=== PATIENT | male | born 1940 | race Caucasian/White ===

== ENCOUNTER 2016-12-16 09:55 | Emergency (ER) | payer MEDICARE ==
[~2016-12-16] VITALS: Ht 177.8 cm; Wt 99.8 kg
[~2016-12-16 09:55] MED LIST: ACTOS30 MG PO; ALPH-E400 IU PO; ARICEPT10 MG PO; ASPIR-LOW81 MG PO; ASPIRIN CHILDRE81 MG PO; AVODART0.5 MG PO; BETAGAN 2 ML2 ML OP; CENTRUM SILVER1 TA1 PO; CHLORTHALIDONE50 MG PO; CLOPIDOGREL75 MG PO; FOLIC ACID0.4 MG PO; HYDROCHLOROTHIA50 MG PO; LISINOPRIL 10MG10 MG NG; LORATADINE1 POW; LUMIGAN 3 ML3 ML OP; METFORMIN500 MG PO; PIOGLITAZONE30 MG PO; PROSCAR5 MG PO; SIMVASTATIN20 MG PO; STAHIST1 TER PO; TAMSULOSIN HYD0.4 MG PO; VITAMIN B12250 MCG PO; VITAMIN C500 M1 PO; VYTORIN 10 MG-41 TAB PO
--- NOTE | 2016-12-16 10:10 | Emergency Room Report ---
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 Clinical Suspician of Infection? Mental Status: Sepsis Risk: Have you (or family members/close friends) recently traveled outside the [place]? If Yes, where/when: Have you had exposure to infectious disease within the past month? TB? Other? Specify: Source RN notes reviewed, family Exam Limitations no limitations, clinical condition Comment Pt was diagnosed with Dementia in 2006 and has been treated with Aricept and Vitamins and [facility] and dismissed by them 2 years ago and at that time was doing really well until recently. Last Monday AM rogerio 350 he fell at home after tripping over his cane. 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 Called 911 and EMS came and got him into bed and everything seemed to be OK. Monday they went to mosque, came home, the was outside and a friend called, he answered th phone and did not tell her about it. He has been gettting steadily worse with him memory and his ability to ambulate since then. took him to see Dr. Isaac earlier this week and Dr. Isaac tried to get him set up for a CT of head with contrast in [place] but has not been done. Now she wants him to have a CT of the head now with contrast but his Cr=2.1 and his hydration is much worse than it was earlier this week at Dr. Isaac's office. We will try to hydrate and improve his creatinine enough to get a CT of head with contrast but I doubt we will be successful in the ED Cardiac Chest Pain Chest pain indicative of cardiac No ALLERGIES Coded Allergies: [place] Nut ([id number] 04/14/14) Home Medications Reported Medications Finasteride (Proscar) 5 MG PO DAILY LISINOPRIL (Lisinopril) 10 MG NG DAILY Hydrochlorothiazide 50 MG PO DAILY Dutasteride (Avodart) 0.5 MG PO DAILY PIOGLITAZONE HCL (Actos 30MG) 30 MG PO 1700 Donepezil Hydrochloride (Aricept 10MG) 10 MG PO DAILY Ezetimibe/Simvastatin (Vytorin 10-40 MG Tablet) 1 TAB PO QHS LEVOBUNOLOL HCL (Betagan 2 Ml) 2 ML OP BID Bimatoprost (Lumigan 3 Ml) 1 DROP OP DAILY Metformin HCL (Metformin) 500 MG PO BID Multivitamin, Minerals, And (Centrum Silver) 1 TAB PO DAILY Folic Acid 0.4 MG PO DAILY Cyanocobalamin (Vitamin B12) 250 MCG PO DAILY Vitamin E (Alph-E) 400 IU PO DAILY Ascorbic Acid (Vitamin C) 500 MG PO DAILY CLOPIDOGREL BISULFATE (Clopidogrel 75MG) 75 MG PO DAILY Chlorthalidone 50 MG PO DAILY Aspirin (Aspir-Low) 81 MG PO DAILY PIOGLITAZONE HCL (Pioglitazone HCl) 30 MG PO DAILY TAMSULOSIN HCL (Tamsulosin 0.4MG) 0.4 MG PO QHS Simvastatin 20 MG PO DAILY Loratadine 1 POW NA QHS History Medical History General CAD? No Angina: No DE: No Hypertension? Yes Hyperlipidemia? Yes CHF? No COPD? No Asthma? No Anemia? No Hernia? No Thyroid Problems? No Hypothyroidism? No CVA? Yes Seizures? No Diabetes? Yes End Stage Renal Disease? No UTI? No Stones? Yes GB Disease: Yes Nephritic Syndrome? No Asplenia? No Hepatitis? No Sickle Cell Disease? No Arthritis? No Cataracts? No Glaucoma? Yes MRSA? No TB? No Cancer? Yes Immunization Hx DT/Tetanus 1-4 Years Ago Flu LAST YEAR Pneumonia 1-4 YRS Surgical Hx Previous Surgery?Y CHOLECYSTECTOMY BILATERAL HIP REPLACEMENT Family History Family Hx Diabetes Yes CAD Yes Hypertension Yes Hyperlipidemia Yes Cancer Yes TB No Social History Alcohol Alcohol: No Review of Systems All Other Systems Reviewed and Negative Constitutional see HPI Musculoskeletal see HPI Psychiatric/Neurological see HPI Physical Exam Vital Signs Vital Signs Date Time Temp Pulse Resp B/P Pulse O2 O2 Flow FiO2 Ox Delivery Rate 12/16 1224 97.7 74 20 144/73 98 12/16 1213 98 18 144/73 97 12/16 1000 97.6 97 18 120/67 97 General Appearance no apparent distress, fatigued Respiratory Status No: respiratory distress. Cardiovascular normal exam, regular rate/rhythm Neurologic motor weakness, disoriented x 3 Medical Decision Making LABS/Meds/Orders Pt receiving controlled substance in ED? No Results/Orders Laboratory Tests 12/16/16 1215: Urine Color YELLOW, Urine Appearance CLEAR, Urine pH 7.5, Ur Specific [place] 1.015, Urine Protein NEGATIVE, Urine Ketones NEGATIVE, Urine Blood NEGATIVE, Urine Nitrate POSITIVE H, Urine Bilirubin NEGATIVE, Urine Urobilinogen 0.2, Ur Leukocyte Esterase 2+ H, Urine RBC NONE, Urine WBC 5-10, Ur Squamous Epith Cells OCC, Urine Bacteria 3+, Urine Glucose NEGATIVE 12/16/16 1010: Sodium 138, Potassium 3.7, Chloride 102, Carbon Dioxide 29, BUN 40 H, Creatinine 2.1 H, Estimated Creat Clear 41 L, Estimated GFR (MDRD) 31, Glucose 135 H, Calcium 9.3, Total Bilirubin 0.5, AST 23, ALT 20, Alkaline Phosphatase 72, Total Protein 7.4, Albumin 3.6, Globulin 3.8 H, Albumin/Globulin Ratio 0.9 L, WBC 7.8, RBC 4.20 L, Hgb 12.9 L, Hct 39.3 L, MCV 93.5, RDW 14.0, Plt Count 290, MPV 7.5, Gran % 67.2, Gran # 5.3, Lymphocytes % 22.2, Monocytes % 8.3, Eosinophils % 1.8, Basophils % 0.5, Lymphocytes # 1.7, Monocytes # 0.7, Eosinophils # 0.1, Basophils # 0.0, PUBS MCHC 32.9, MCH 30.8 Current Medication Orders Sig/Keila Start time Last Medication Dose Route Stop Time Status Admin Sodium Chloride 999 ML .Q1H 12/16 1100 CAN IV Sodium Chloride 10 ML PRN PRN 12/16 1100 DC IV 12/17 1049 Sodium Chloride 1,000 ML .Q1H1M 12/16 1100 CAN IV 12/16 1200 Sodium Chloride 10 ML PRN PRN 12/16 1100 DC IV 12/17 1050 Sodium Chloride 1,000 ML .Q1H1M 12/16 1100 DC 12/16 IV 12/16 1200 1058 Sodium Chloride 10 ML PRN PRN 12/16 1100 AC IV 12/17 1057 Sodium Chloride 1,000 ML .STK-MED ONE 12/16 1059 DC IV Sodium Chloride 1,000 ML .STK-MED ONE 12/16 1057 DC IV Sodium Chloride 10 ML PRN PRN 12/16 1030 AC IV 12/17 1019 Orders Procedure Date/time Status DIET-NOTHING BY MOUTH 12/16 L Complete DIET-NOTHING BY MOUTH 12/16 D Active CULTURE, URINE 12/[address] ABD/PELVIS REQ 12/[address] HEAD REQ 12/16 1020 Active IV SALINE LOCK 12/16 1020 Active URINALYSIS/COMPLETE 12/16 1020 Complete CBC WITH AUTO DIFF 12/16 1020 Complete CHEM 12 PROFILE 12/16 1020 Complete Departure Departure Time of Disposition 1252 Disposition DC/XFER from ER to 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 Billy at [facility] and admitted by Hospitalist, Joann Perdomo Discharge Counseling Counseled pt/family regarding diagnosis, test results, follow up needs ED Critical Care Critical Care No If Critical Care minutes are documented, the time involved in the performance of seperately reportable procedures was not counted toward critical care time documented. I directly delivered medical care to this critically ill and/or injured patient. Timely evaluation and treatment was necessary to address the significant organ system(s) dysfunction present in this patient. at 1257
[2016-12-16 10:39] LABS: LYMPH # 1.7 K/mm3 (0.7-4.5); LYMPH % 22.2 % (10-50)
[2016-12-16 10:40] LABS: HEMOGLOBIN 12.9 g/dL (14.1-18.0)
--- OUTSIDE RECORDS SUMMARY | 2016-12-16 10:55 | External Medical Summary Rpt | CCD ---
Author Author [employer] Organization [employer] Address Unknown Phone Unavailable Purpose Continuity of Care Document - through 2016
--- OUTSIDE RECORDS SUMMARY | 2016-12-16 10:55 | External Medical Summary Rpt ---
Author Author KRISZENON Caldera, [employer] Organization [employer] Address Unknown Phone Unavailable Results CBC W Auto Differential panel in Blood Observa Value Referen Units Interpr Notes Date tion ce etation Range Basophils 0 - 0.2 K/MM3 Normal No Dec 162016 [#/volume on in 10:10 AM ] in source Blood by data Automated count Basophils 0.1 - 2.0 % Normal No Dec 162016 leukocyte on in 10:10 AM s in source Blood by data Automated count Eosinophi 0.0 - 0.4 K/mm3 Normal No Dec 16 ls 2016 [#/volume on in 10:10 AM ] in source Blood by data Automated count Eosinophi 0.1 - % Normal No Dec 16 ls/100 12.0 2016 leukocyte on in 10:10 AM s in source Blood by data Automated count Granulocy 1.3 - 8.0 K/mm3 Normal No Dec 16 ivan 2016 [#/volume on in 10:10 AM ] in source Blood by data Automated count Granulocy 37.0 - % Normal No Dec 16 ivan/100 80.0 2016 leukocyte on in 10:10 AM s in source Blood by data Automated count Hematocri 42.0 - % Low No Dec 16 t [Volume 52.0 2016 on in 10:10 AM Fraction] source of Blood data Hemoglobi 14.1 - g/dL Low No Dec 16 n 18.0 2016 [Mass/vol on in 10:10 AM ume] in source Blood data Lymphocyt 0.7 - 4.5 K/mm3 Normal No Dec 16 es 2016 [#/volume on in 10:10 AM ] in source Unspecifi data ed specimen by Automated count Lymphocyt 10 - 50 % Normal No Dec 16 es 2016 [#/volume on in 10:10 AM ] in source Unspecifi data ed specimen by Automated count Erythrocy 27 - 31.2 pg Normal No Dec 16 te mean 2016 corpuscul on in 10:10 AM ar source hemoglobi data n [Entitic mass] Erythrocy 31.8 - g/dl Normal No Dec 16 te mean 35.4 2016 corpuscul on in 10:10 AM ar source hemoglobi data n concentra tion [Mass/vol ume] by Automated count Erythrocy 82.2 - fl Normal No Dec 16 te mean 97.8 2016 corpuscul on in 10:10 AM ar volume source [Entitic data volume] by Automated count Monocytes 0.1 - 1.0 K/mm3 Normal No Dec 16 inform2016 [#/volume on in 10:10 AM ] in source Blood by data Automated count Monocytes 1.7 - 9.3 % Normal No Dec 16 /2016 leukocyte on in 10:10 AM s in source Blood by data Automated count Platelet 7.4 - fl Normal No Dec 16 mean 10.4 2016 volume on in 10:10 AM [Entitic source volume] data in Blood by Automated count Platelets 142 - 424 K/mm3 Normal No Dec 162016 [#/volume on in 10:10 AM ] in source Blood data Erythrocy 4.6 - 6.2 M/mm3 Low No Dec 16 ivan 2016 [#/volume on in 10:10 AM ] in source Amniotic data fluid Erythrocy 11.5 - % Normal No Dec 16 te 17.5 2016 distribut on in 10:10 AM ion width source [Entitic data volume] by Automated count Leukocyte 4.8 - K/MM3 Normal No Dec 16 s 10.8 ati 2016 [#/volume on in 10:10 AM ] in source Blood data Comprehensive metabolic 2000 panel in Serum or Plasma Observa Value Referen Units Interpr Notes Date tion ce etation Range Albumin/G 1.1 - 1.8 No Low No Dec 16 lobulin informati 2016 [Mass on in on in 10:10 AM ratio] in source source Serum or data data Plasma Albumin 3.4 - 5.0 gm/dL Normal No Dec 16 [Mass/vol ati 2016 ume] in on in 10:10 AM Serum or source Plasma data Alkaline 46 - 116 U/L Normal No Dec 16 phosphata 2016 se on in 10:10 AM [Enzymati source c data activity/ volume] in Serum or Plasma Bilirubin 0.2 - 1.0 mg/dL Normal No Dec 16 .total informati 2016 [Mass/vol on in 10:10 AM ume] in source Serum or data Plasma Urea 7 - 18 mg/dL High No Dec 16 nitrogen informati 2017 [Mass/vol on in 10:10 AM ume] in source Serum or data Plasma Calcium 8.5 - mg/dL Normal No Dec 16 [Mass/vol 10.1 informati 2017 ume] in on in 10:10 AM Serum or source Plasma data Chloride 98 - 107 mmoL/L Normal No Dec 16 [Moles/vo informati 2017 lume] in on in 10:10 AM Serum or source Plasma data Carbon 21.0 - mmoL/L Normal No Dec 16 dioxide, 32.0 informati 2017 total on in 10:10 AM [Moles/vo source lume] in data Serum or Plasma Creatinin 0.70 - mg/dL High No Dec 16 e 1.30 informati 2017 [Mass/vol on in 10:10 AM ume] in source Serum or data Plasma Creatinin 50 - 200 ML/MIN Low No Dec 16 e renal informati 2017 clearance on in 10:10 AM source predicted data by Cockcroft -Gault formula Estimated >60 ML/MIN No REFERENCE Dec 16 informati RANGE: 2017 glomerula on in >60 10:10 AM r source ML/MIN/1. filtratio data 73 SQUARE n rate METERSIf (GF this patient is -A merican, then multiply theresult by 1.210. Globulin 1.3 - 3.2 gm/dL High No Dec 16 [Mass/vol informati 2016 ume] in on in 10:10 AM Serum source data Glucose 74 - 106 mg/dL High No Dec 16 [Mass/vol informati 2017 ume] in on in 10:10 AM Serum or source Plasma data Potassium 3.5 - 5.1 mmoL/L Normal No Dec 16 informati 2016 [Moles/vo on in 10:10 AM lume] in source Serum or data Plasma Sodium 136 - 145 mmoL/L Normal No Dec 16 [Moles/vo informati 2017 lume] in on in 10:10 AM Serum or source Plasma data Aspartate 15 - 37 U/L Normal No Dec 16 informati 2016 aminotran on in 10:10 AM sferase source [Enzymati data c activity/ volume] in Serum or Plasma Alanine 12 - 78 U/L Normal Dec 16 aminotran informati 2017 sferase on in 10:10 AM [Enzymati source c data activity/ volume] in Serum or Plasma Protein 6.4 - 8.2 gm/dL Normal No Dec 16 [Mass/vol informati 2017 ume] in on in 10:10 AM Serum or source Plasma data
--- OUTSIDE RECORDS SUMMARY | 2016-12-16 10:55 | External Medical Summary Rpt | CCD ---
Author Author KADI Address Unknown Phone [email or web address] Purpose Continuity of Care Document - 12-16-2016 through 2016
--- OUTSIDE RECORDS SUMMARY | 2016-12-16 10:55 | External Medical Summary Rpt | CCD ---
Author Author , KADI WALLIS Address Unknown Phone [email or web address] Immunization Name Date Rout CVX Reac Dose Comm Prov Is Faci e tion ent ider Refu lity Give sed n Infl 09 135 999 Hist D203 No D203 uenz 3-20 oric 45 45 a, 16 al High Info rmat Dose ion - Sour ce Unsp ecif ied
--- OUTSIDE RECORDS SUMMARY | 2016-12-16 10:55 | External Medical Summary Rpt | CCD ---
Author Author KADI Address Unknown Phone [email or web address] Purpose Continuity of Care Document - 12-16-2016 through 2016
--- OUTSIDE RECORDS SUMMARY | 2016-12-16 10:55 | External Medical Summary Rpt | CCD ---
Author Author , KADI WALLIS Address Unknown Phone [email or web address] Immunization Name Date Rout CVX Reac Dose Comm Prov Is Faci e tion ent ider Refu lity Give sed n Infl 09 135 999 Hist D203 No D203 uenz 3-20 oric 45 45 a, 16 al High Info rmat Dose ion - Sour ce Unsp ecif ied
--- NOTE | 2016-12-16 11:52 | RADIOLOGY REPORT PS360 ---
CT HEAD W/O CONTRAST HISTORY: CONFUSION,DECREASED MOBILITY ORDERING PHYSICIAN: Sarbjit Ram MD PATIENT AGE: 76 years COMPARISON: None TECHNIQUE: Axial images obtained without contrast. Brain and bone windows reviewed. FINDINGS: There are multiple intracranial masses the largest of which is in the right frontal lobe measuring 5.8 x 5.3 cm with a somewhat hyperdense component measuring 2.4 cm with the remaining lesion being isodense in nature. There is a moderate amount of vasogenic edema around the lesions especially in the right frontal lobe. The right frontal mass is causing 1.9 cm midline shift towards the left at the region of the mass. Other smaller lesions are present including a mixed solid and cystic lesion in the right parieto-occipital region at 3.2 cm, hyperdense nodule in the left frontal lobe at 0.8 cm,. 1 cm lesion suspected in the left parietal lobe edema. There is increased density involving the posterior aspect of the right occipital lesion which may be related to some underlying hemorrhage. A central slightly hyperdense mass noted in the frontal area at 2.9 cm. No acute calvarial abnormality evident. Left lateral ventricle is somewhat prominent. The right lateral ventricle is effaced by both the anterior and posterior mass. IMPRESSION: Multiple cerebral lesions as described above the largest in the right frontal lobe consistent with metastatic disease. There is moderate amount of vasogenic edema with 1.9 cm midline shift toward the left in the frontal area and mild dilatation of left lateral ventricle. Recommend MRI of the brain without and with contrast for more thorough evaluation. Would also suggest performing a chest x-ray to look for a lung primary Significant findings called to Sarbjit Ram MD on 12/16/2016 11:15 AM.
--- NOTE | 2016-12-16 12:11 | RADIOLOGY REPORT PS360 ---
CT CHEST W/O CONTRAST HISTORY: Cerebral metastasis, abnormal chest x-ray, evaluate for primary or additional metastatic disease. METS ORDERING PHYSICIAN: Sarbjit Ram MD PATIENT AGE: 76 years TECHNIQUE: Axial images obtained without contrast. COMPARISON: None FINDINGS: Coronary artery calcifications are present. There are a few small mediastinal and hilar lymph nodes measuring up to 11 mm in the right paratracheal region. No pericardial effusion. There are innumerable bilateral noncalcified pulmonary nodules in both upper and lower lobes. The largest of these is in the lower lobe on the left at 4 x 2.8 cm consistent with metastatic disease. No lobar consolidation or collapse. There are dependent changes in the lower lobes posteriorly. No effusions. There is mild wedging involving what appears to represent the T6 vertebral body which appears old IMPRESSION: Pulmonary metastasis. It is possible that the largest lung lesion could represent a primary carcinoma with additional lesions representing metastatic foci. No central atrophy lesions are evident
--- NOTE | 2016-12-16 12:14 | RADIOLOGY REPORT PS360 ---
CT ABD PELVIS W/O CONTRAST CLINICAL INDICATION: Metastatic disease ? METASTATIC CA TO BRAIN ORDERING PHYSICIAN: Sarbjit Ram MD PATIENT AGE: 76 years COMPARISON: None TECHNIQUE: Axial images obtained with sagittal and coronal reformats. PROCEDURE: Oral Contrast: None IV Contrast: None . FINDINGS: There has been a prior cholecystectomy. The liver, spleen, adrenal glands, pancreas, and right kidney have an unremarkable appearance. An exophytic cystic area projects off the left kidney measuring 6 x 6.8 cm consistent with an exophytic renal cyst. No intestinal obstruction or free air is evident. Artifact is present from bilateral hip prosthesis obscuring fine detail in the pelvis. No abdominal mass or adenopathy. No abnormal fluid collections or acute bony anomalies. No convincing evidence of metastatic disease within the abdomen or pelvis.. There is a mild amount retained colonic feces. IMPRESSION: 1. No convincing evidence of metastatic disease within the abdomen or pelvis. 2. Large left renal cyst
[2016-12-16 12:26] LABS: URINE BILIRUBIN - DIPSTICK NEGATIVE (NEG); URINE BLOOD NEGATIVE (NEG)
--- NOTE | 2016-12-16 12:27 | RADIOLOGY REPORT PS360 ---
CHEST-AP VIEW ONLY HISTORY: METASTATIC BRAIN LESIONS SEEN ON CT ORDERING PHYSICIAN: Sarbjit Ram MD PATIENT AGE: 76 years COMPARISON: None available FINDINGS: There is mild cardiomegaly without failure. Multiple lung lesions are present the largest in the left infrahilar region at 3.7 cm. Nodules are present in both left and right lung. No lobar consolidation or collapse. No acute bony anomalies. IMPRESSION: Multiple pulmonary nodules consistent with metastatic disease. The largest lesion in the left infrahilar region could be due to a primary malignancy with pulmonary metastasis. Chest CT may be of further value.
[2016-12-16 12:33] LABS: URINE SQUAMOUS CELLS OCC #/hpf (OCC)
[2016-12-16 17:10] VITALS: BP 134/62
== END 2016-12-16 17:08 | disposition short-term general hospital (02) ==
LOC: ER 09:55
PROVIDERS: General Practice
DX: C34.92 Malignant neoplasm of unspecified part of left bronchus or lung (principal); C80.1 Malignant (primary) neoplasm, unspecified; C79.31 Secondary malignant neoplasm of brain; I10 Essential (primary) hypertension; E11.9 Type 2 diabetes mellitus without complications; Z79.84 Long term (current) use of oral hypoglycemic drugs; E78.5 Hyperlipidemia, unspecified